=== PATIENT | male | born 1980 | race American Indian/Alaskan Native ===

== ENCOUNTER 2017-07-15 12:28 | Emergency (ER) | payer OTHER ==
[2017-07-15 12:37] VITALS: BMI 20.7
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
--- NOTE | 2017-07-15 15:24 | CT ---
PROCEDURE: CT Cervical Spine without contrast HISTORY: Neck pain COMPARISON: None available. TECHNIQUE: Axial computed tomography images were obtained of the cervical spine without the use of intravenous contrast. Coronal and sagittal reformatted images were created and reviewed. Radiation dose: Total exam DLP = 477.73 mGy-cm. This CT exam was performed using one or more of the following dose reduction techniques: Automated exposure control, adjustment of the mA and/or kV according to patient size, and/or use of iterative reconstruction technique. FINDINGS: VERTEBRAE: There is normal alignment of the cervical vertebral bodies. There is normal cervical lordosis. There is no acute fracture or spondylolisthesis. Bone mineralization is normal. The craniocervical junction is normal. The atlantoaxial joint is normal. DISCS/SPINAL CANAL/NEURAL FORAMINA: Evaluation of the spinal cord and discs is limited on noncontrast CT examination. Evaluation of individual disc levels: C2-3: No large disc herniation, neural foraminal or spinal canal stenosis. C3-4: No large disc herniation, neural foramina spinal canal stenosis. C4-5: No large disc herniation, neural foraminal or spinal canal stenosis. C5-6: No large disc herniation, neural foraminal or spinal canal stenosis. C6-7: No large disc herniation, neural foraminal or spinal canal stenosis. C7-T1: No large disc herniation, neural foraminal or spinal canal stenosis. PARASPINAL SOFT TISSUES: The paraspinous soft tissues are normal. . OTHER FINDINGS: None. IMPRESSION: No acute fracture listhesis or traumatic anterior listhesis. Evaluation of the and spinal cord is limited on noncontrast examination. Allowing for this, no large disc herniation, neural foraminal or spinal canal stenosis.
--- NOTE | 2017-07-15 15:51 | CT ---
PROCEDURE: CT Lumbar Spine without contrast HISTORY: Back pain COMPARISON: None. TECHNIQUE: Axial computed tomography images were obtained of the lumbar spine without the use of intravenous contrast. Coronal and sagittal reformatted images were created and reviewed. Radiation dose: Total exam DLP = 321.62 MGy-cm. This CT exam was performed using one or more of the following dose reduction techniques: Automated exposure control, adjustment of the mA and/or kV according to patient size, and/or use of iterative reconstruction technique. FINDINGS: VERTEBRAE: There is normal alignment of the lumbar vertebral bodies. There is normal lumbar lordosis. There is no acute fracture, spondylolysis or spondylolisthesis. Bone mineralization is normal. DISCS/SPINAL CANAL/NEURAL FORAMINA: Evaluation of the discs and spinal canal is limited on noncontrast CT examination. Allowing for this, L1-2: No large disc herniation, neural foraminal or spinal canal stenosis. L2-3: No large disc herniation, neural foraminal or spinal canal stenosis L3-4: Mild posterior disc bulge without central spinal canal stenosis. Mild bilateral facet arthropathy contribute to severe neural foraminal narrowing. L4-5: Diffuse posterior disc bulge indents the ventral thecal sac with mild spinal canal stenosis. Moderate bilateral facet arthropathy contribute to severe neural foraminal narrowing. L5-S1: Posterior disc bulge without central spinal canal stenosis. Mild bilateral facet arthropathy contributes to severe neural foraminal narrowing. PARASPINAL SOFT TISSUES: Unremarkable. OTHER FINDINGS: None. IMPRESSION: 1. No acute fracture, spondylolysis or spondylolisthesis. 2. Mild multilevel degenerative disc disease, worse at L4-5 with a diffuse posterior disc bulge and mild spinal canal stenosis. Also noted is severe bilateral neural foraminal narrowing.
[2017-07-15 16:33] VITALS: BP 116/78; PULSE 64; TEMP 99.2
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
[2017-07-15 17:48] VITALS: RESP 19; O2SAT 98
== END 2017-07-15 17:47 | disposition home or self-care (01) ==
LOC: ED 12:28
DX: S09.90XA Unspecified injury of head, initial encounter (principal); V69.9XXA Occupant (driver) (passenger) of heavy transport vehicle injured in unspecified traffic accident, initial encounter; M54.2 Cervicalgia; M54.9 Dorsalgia, unspecified; F17.200 Nicotine dependence, unspecified, uncomplicated
CPT/HCPCS: 70450; 72125; 72131; 96372; 99284; J1885